=== PATIENT | male | born 1990 | race Caucasian/White ===

== ENCOUNTER 2021-10-09 07:36 | Inpatient (IN) ==
[2021-10-09 09:10] LABS: ALT 41 U/L (7-52); AST 27 U/L (13-39); Albumin/Globulin Ratio 1.8 (1-3); Alkaline Phosphatase 61 U/L (35-149); Anion Gap 9 mmol/L (2-11); Blood Urea Nitrogen 7 mg/dL (6-24); CO2 Carbon Dioxide 28 mmol/L (22-32); Calcium 9.7 mg/dL (8.6-10.3); Chloride 101 mmol/L (101-111); Globulin 2.8 g/dL (2-4); Glucose 102 mg/dL (70-100); Potassium 3.9 mmol/L (3.5-5.0); Sodium 138 mmol/L (135-145); Total Protein 7.8 g/dL (6.4-8.9); eGFR CKD-EPI 116.8 (>60)
[2021-10-09 09:14] LABS: Urine Benzodiazepine Screen None Detected (None Detect); Urine Cannabinoids Screen None Detected (None Detect); Urine Opiates Screen None Detected (None Detect)
[2021-10-09 09:46] LABS: Acetaminophen < 15 mcg/mL; Alcohol, S < 13 mg/dL (<13); Salicylate < 2.50 mg/dL (<30)
[2021-10-09 10:02] LABS: TSH Ultra Thyroid Stim Horm 1.09 mcIU/mL (0.34-5.60)
[2021-10-09] MEDS ORDERED: Al Hydrox/Mg Hydrox/Simet LIQ 30 ML UDC PO PRN (10:41)
[2021-10-09 11:09] LABS: Urine Appearance Clear; Urine Bilirubin Negative (Negative); Urine Blood Negative (Negative); Urine Color Yellow; Urine Glucose Negative (Negative); Urine Ketones 1+ (Negative); Urine Nitrite Negative (Negative); Urine Protein Negative (Negative); Urine Specific Gravity 1.009 (1.002-1.030); Urine Urobilinogen Negative (Negative)
[2021-10-09 14:32] LABS: ABS Neutrophils 4.6 10^3/ul (1.5-7.7); Eosinophil % 0.6 %; Hematocrit 44 % (42-52); Lymphocyte % 26.5 %; Mean Corpuscular HGB Conc 34 g/dL (31-36); Mean Corpuscular Hemoglobin 30 pg (27-31); Mean Corpuscular Volume 88 fL (80-94); Mean Platelet Volume 12.5 fL (7.4-10.4); Nucleated Red Blood Cells % 0.1; Platelet Count 122 10^3/uL (150-450); Red Blood Count 5.01 10^6 /uL (4.18-5.48); Red Cell Distribution Width 13 % (10-15); White Blood Count 7.7 10^3/uL (3.5-10.8)
[2021-10-11 07:49] VITALS: BP 135/83
== END 2021-10-11 12:20 | disposition home or self-care (01) | DRG 776 ==
LOC: ED 07:36 → BSU 10:41
PROVIDERS: ADMIT Psychiatry & Neurology Psychiatry; ATTEND Psychiatry & Neurology Psychiatry